=== PATIENT | male | born 1990 | race Hispanic/Latino ===

== ENCOUNTER 2019-04-23 12:12 | Emergency (ER) | payer SELFPAY ==
[~2019-04-23] VITALS: Ht 165.1 cm; Wt 70.0 kg
[~2019-04-23 12:12] MED LIST: NAPROSYN500 MG PO
[2019-04-23 13:33] LABS: HEMOGLOBIN 14.9 g/dl (14.0-18.0); IMMATURE GRANULOCYTES 0.4 % (0.0-5.0); MEAN CORPUSCULAR HGB 28.5 pG CALC (26.0-32.0); MEAN CORPUSCULAR HGB CONC 33.2 g/L CALC (32.0-36.0); NEUT# 4.74 thou/uL (1.82-7.42); RED BLOOD COUNT 5.22 mill/uL (4.70-6.10); RED CELL DISTRI WIDTH 12.8 % (11.5-15.5)
[2019-04-23 13:38] LABS: HEMATOCRIT 44.9 % (39.0-50.0)
[2019-04-23 13:46] LABS: ALBUMIN 4.5 g/dL (3.2-5.0); ALKALINE PHOSPHATASE 87 u/l (38-126); ANION GAP 12 (6-22 (CALC)); BUN 12 mg/dL (9-20); BUN/CREATININE RATIO 15 (12-20 (CALC)); CARBON DIOXIDE 28 mmol/l (22-30); CHLORIDE 103 mmol/l (95-108); CREATININE 0.8 mg/dL (0.7-1.3); GFR > 60 ML/MIN (>=60 (CALC)); GFR FOR AFR.AMER. > 60 ML/MIN (>=60 (CALC)); POTASSIUM 4.1 mmol/l (3.5-5.1); SGOT/AST 25 u/l (17-59); SODIUM 139 mmol/l (137-146); TOTAL PROTEIN 7.8 g/dL (6.3-8.2)
[2019-04-23 13:47] LABS: CPK 136 u/l (52-200)
[2019-04-23 13:56] LABS: MYOGLOBIN 31 ng/mL (0 - 121)
[2019-04-23 14:04] LABS: URINE BILIRUBIN - DIPSTICK NEGATIVE (NEGATIVE); URINE BLOOD DIPSTICK TRACE-INTACT (NEGATIVE); URINE COLOR YELLOW; URINE GLUCOSE - DIPSTICK NEGATIVE (NEGATIVE); URINE KETONE NEGATIVE (NEGATIVE); URINE LEUK ESTERASE NEGATIVE (NEGATIVE); URINE NITRITE - DIPSTICK NEGATIVE (Negative); URINE PH 5.5 (4.5-8.0); URINE PROTEIN - DIPSTICK NEGATIVE (NEG-TRACE); URINE SPECIFIC GRAVITY >=1.030; URINE UROBILINOGEN - DIPSTICK 0.2 E.U./dL (0.2)
[2019-04-23 14:36] LABS: TSH, 3RD GENERATION 1.32 uIU/mL (0.47 - 4.68)
[2019-04-23 15:12] VITALS: BP 118/68
== END 2019-04-23 15:12 | disposition home or self-care (01) | DRG 948 ==
LOC: ED 12:12
PROVIDERS: Family Medicine
DX: R53.83 Other fatigue (principal); R53.1 Weakness; R11.2 Nausea with vomiting, unspecified

== ENCOUNTER 2021-10-11 18:47 | Emergency (ER) | payer SELFPAY ==
[~2021-10-11] VITALS: Ht 165.1 cm; Wt 76.0 kg
[2021-10-11 18:55] VITALS: BP 163/120
[2021-10-11 19:00] VITALS: BP 149/95
[2021-10-11 19:24] LABS: HEMATOCRIT 45.3 % (39.0-50.0); HEMOGLOBIN 15.5 g/dl (14.0-18.0); IMMATURE GRANULOCYTES 0.3 % (0.0-5.0); MEAN CELL VOLUME 86.8 fL CALC (80.0-100.0); MEAN CORPUSCULAR HGB 29.7 pG CALC (26.0-32.0); MEAN CORPUSCULAR HGB CONC 34.2 g/dL CAL (32.0-36.0); NEUT# 5.73 thou/uL (1.82-7.42); RED BLOOD COUNT 5.22 mill/uL (4.70-6.10)
[2021-10-11 19:24] LABS: URINE BILIRUBIN - DIPSTICK NEGATIVE (NEGATIVE); URINE BLOOD DIPSTICK MODERATE (NEGATIVE); URINE COLOR YELLOW; URINE GLUCOSE - DIPSTICK NEGATIVE (NEGATIVE); URINE KETONE NEGATIVE (NEGATIVE); URINE LEUK ESTERASE NEGATIVE (NEGATIVE); URINE PROTEIN - DIPSTICK 30 mg/dL (NEG-TRACE); URINE SPECIFIC GRAVITY >=1.030; URINE UROBILINOGEN - DIPSTICK 0.2 E.U./dL (0.2)
[2021-10-11 19:25] LABS: URINE NITRITE - DIPSTICK NEGATIVE (Negative)
[2021-10-11 19:29] LABS: URINE WBC 0-2 WBC/hpf (0-5)
[2021-10-11 19:30] VITALS: BP 137/84
[2021-10-11 19:41] LABS: ALBUMIN 4.8 g/dL (3.2-5.0); ALKALINE PHOSPHATASE 113 u/l (38-126); ANION GAP 15 (6-22 (CALC)); BILIRUBIN, TOTAL 0.7 mg/dL (0.0-1.4); BUN 15 mg/dL (9-20); BUN/CREATININE RATIO 18 (12-20 (CALC)); CARBON DIOXIDE 25 mmol/l (22-30); CHLORIDE 105 mmol/l (95-108); CREATININE 0.8 mg/dL (0.7-1.3); GFR > 60 ML/MIN (>=60 (CALC)); GFR FOR AFR.AMER. > 60 ML/MIN (>=60 (CALC)); LIPASE 50 u/l (23-300); POTASSIUM 3.9 mmol/l (3.5-5.1); SODIUM 141 mmol/l (137-146); TOTAL PROTEIN 8.6 g/dL (6.3-8.2)
[2021-10-11 19:48] LABS: SGOT/AST 46 u/l (17-59)
[2021-10-11] MEDS ORDERED: ONDANSETRON4 MG PO (19:58)
[2021-10-11 20:00] VITALS: BP 118/72
[2021-10-11 20:14] VITALS: BP 118/72
== END 2021-10-11 20:34 | disposition home or self-care (01) | DRG 392 ==
LOC: ED 18:47
PROVIDERS: Nurse Practitioner
DX: K52.9 Noninfective gastroenteritis and colitis, unspecified (principal)

== ENCOUNTER 2021-12-22 15:02 | Emergency (ER) | payer SELFPAY ==
[~2021-12-22] VITALS: Ht 165.1 cm; Wt 70.0 kg
[~2021-12-22 15:02] MED LIST changes: +ONDANSETRON4 MG PO
[2021-12-22 17:43] VITALS: BP 142/76
[2021-12-23] MEDS ORDERED: VOLTAREN75 MG PO (22:27)
== END 2021-12-22 22:09 | disposition home or self-care (01) | DRG 556 ==
LOC: ED 15:02
DX: M25.531 Pain in right wrist (principal); M79.631 Pain in right forearm; M79.672 Pain in left foot; V13.4XXA Pedal cycle driver injured in collision with car, pick-up truck or van in traffic accident, initial encounter

== ENCOUNTER 2021-12-23 20:33 | Emergency (ER) | payer SELFPAY ==
[~2021-12-23] VITALS: Ht 165.1 cm; Wt 72.0 kg
[2021-12-23] MEDS ORDERED: VOLTAREN75 MG PO (22:27)
[2021-12-23 22:45] VITALS: BP 121/75
== END 2021-12-23 22:45 | disposition home or self-care (01) | DRG 563 ==
LOC: ED 20:33
DX: S46.911A Strain of unspecified muscle, fascia and tendon at shoulder and upper arm level, right arm, initial encounter (principal); V13.4XXA Pedal cycle driver injured in collision with car, pick-up truck or van in traffic accident, initial encounter

== ENCOUNTER 2022-05-03 17:56 | Emergency (ER) | payer SELFPAY ==
[~2022-05-03] VITALS: Ht 165.1 cm; Wt 86.1 kg
[~2022-05-03 17:56] MED LIST changes: +VOLTAREN75 MG PO
[2022-05-03 18:14] VITALS: BP 136/93
[2022-05-03 18:30] VITALS: BP 125/86
[2022-05-03 18:51] LABS: HEMATOCRIT 44.9 % (39.0-50.0); HEMOGLOBIN 15.2 g/dl (14.0-18.0); IMMATURE GRANULOCYTES 0.6 % (0.0-5.0); MEAN CORPUSCULAR HGB 29.1 pG CALC (26.0-32.0); MEAN CORPUSCULAR HGB CONC 33.9 g/dL CAL (32.0-36.0); NEUT# 7.61 thou/uL (1.82-7.42); RED BLOOD COUNT 5.22 mill/uL (4.70-6.10); RED CELL DISTRI WIDTH 12.9 % (11.5-15.5)
[2022-05-03 18:55] LABS: URINE BILIRUBIN - DIPSTICK NEGATIVE (NEGATIVE); URINE BLOOD DIPSTICK SMALL (NEGATIVE); URINE COLOR YELLOW; URINE GLUCOSE - DIPSTICK NEGATIVE (NEGATIVE); URINE KETONE NEGATIVE (NEGATIVE); URINE LEUK ESTERASE NEGATIVE (NEGATIVE); URINE PH 5.5 (4.5-8.0); URINE PROTEIN - DIPSTICK TRACE mg/dL (NEG-TRACE); URINE SPECIFIC GRAVITY >=1.030; URINE UROBILINOGEN - DIPSTICK 0.2 E.U./dL (0.2)
[2022-05-03 18:58] LABS: URINE NITRITE - DIPSTICK NEGATIVE (Negative)
[2022-05-03 19:00] VITALS: BP 119/75
[2022-05-03 19:04] LABS: ALBUMIN 4.6 g/dL (3.2-5.0); ALKALINE PHOSPHATASE 117 u/l (38-126); AMYLASE 87 u/l (30-110); ANION GAP 13 (6-22 (CALC)); BUN 8 mg/dL (9-20); BUN/CREATININE RATIO 10 (12-20 (CALC)); CARBON DIOXIDE 25 mmol/l (22-30); CHLORIDE 105 mmol/l (95-108); CREATININE 0.7 mg/dL (0.7-1.3); GFR FOR AFR.AMER. > 60 ML/MIN (>=60 (CALC)); GFR OTHER RACES > 60 ML/MIN (>=60 (CALC)); LIPASE 50 u/l (23-300); POTASSIUM 3.6 mmol/l (3.5-5.1); SGOT/AST 48 u/l (17-59); SODIUM 139 mmol/l (137-146); TOTAL PROTEIN 8.1 g/dL (6.3-8.2); URINE WBC 0-2 WBC/hpf (0-5)
[2022-05-03 19:05] LABS: BILIRUBIN, TOTAL 0.4 mg/dL (0.0-1.4)
[2022-05-03 19:14] LABS: ETHYL ALCOHOL 0 mg/dl (0-30)
[2022-05-03] MEDS ORDERED: ONDANSETRON4 MG PO (20:32)
[2022-05-03] MEDS ORDERED: CIPROFLOXACN500 MG PO (20:32)
[2022-05-03] MEDS ORDERED: MEDDOSEPAK PO (20:32)
[2022-05-03] MEDS ORDERED: METRONIDAZOLE500 MG PO (20:32)
[2022-05-03] MEDS ORDERED: NAPROXEN500 MG PO (20:33)
[2022-05-03 20:44] VITALS: BP 119/75
== END 2022-05-03 21:18 | disposition home or self-care (01) | DRG 392 ==
LOC: ED 17:56
PROVIDERS: Nurse Practitioner
DX: K52.9 Noninfective gastroenteritis and colitis, unspecified (principal); M54.12 Radiculopathy, cervical region
CPT/HCPCS: Q9967

== ENCOUNTER 2022-12-20 23:29 | Emergency (ER) | payer SELFPAY ==
[~2022-12-20] VITALS: Ht 165.1 cm; Wt 70.0 kg
[~2022-12-20 23:29] MED LIST changes: +CIPROFLOXACN500 MG PO; +MEDDOSEPAK PO; +METRONIDAZOLE500 MG PO; +NAPROXEN500 MG PO
[2022-12-20 23:38] VITALS: BP 143/101
[2022-12-20 23:45] VITALS: BP 132/93
[2022-12-21] VITALS: BP 129/84
[2022-12-21 00:15] VITALS: BP 138/84
[2022-12-21 00:20] VITALS: BP 138/84
== END 2022-12-21 00:20 | disposition home or self-care (01) | DRG 605 ==
LOC: ED 23:29
PROC: 0HQ0XZZ Repair Scalp Skin, External Approach (ICD-10-PCS; principal; 2022-12-20)
DX: S01.01XA Laceration without foreign body of scalp, initial encounter (principal); W27.0XXA Contact with workbench tool, initial encounter; Y93.89 Activity, other specified; Y92.009 Unspecified place in unspecified non-institutional (private) residence as the place of occurrence of the external cause